=== PATIENT | male | born 1985 | race Caucasian/White ===

== ENCOUNTER 2020-05-07 10:09 | Emergency (ER) | payer MEDICAID ==
[~2020-05-07] VITALS: Ht 180.3 cm; Wt 110.0 kg
[2020-05-07 10:20] VITALS: BP 152/99
[2020-05-07] MEDS ORDERED: LIDOCAINE HCL/PF 1% 10 MG/ML 5ML VIAL IJ ONE (10:45)
== END 2020-05-07 11:17 | disposition home or self-care (01) ==
LOC: ER 10:09
DX: L72.3 Sebaceous cyst (principal); K04.7 Periapical abscess without sinus; R03.0 Elevated blood-pressure reading, without diagnosis of hypertension
CPT/HCPCS: 10060; 99282; J3490